=== PATIENT | male | born 1990 | race Caucasian/White ===

== ENCOUNTER 2019-01-05 23:35 | Emergency (ER) | payer SELFPAY ==
[~2019-01-05] VITALS: Ht 190.5 cm; Wt 71.0 kg
[2019-01-06] MEDS ORDERED: KETOROLAC 60MG/2ML VIAL IM ONE (06:00)
[2019-01-06 06:42] VITALS: BP 118/75
== END 2019-01-06 06:46 | disposition home or self-care (01) ==
LOC: ER 23:35
DX: S09.90XA Unspecified injury of head, initial encounter (principal); Y04.0XXA Assault by unarmed brawl or fight, initial encounter; Y93.89 Activity, other specified; Y92.89 Other specified places as the place of occurrence of the external cause; Y99.8 Other external cause status
CPT/HCPCS: 70450; 96372; 99284; J1885